=== PATIENT | male | born 1960 | race Caucasian/White ===

== ENCOUNTER 2018-02-24 19:09 | Emergency (ER) | payer MEDICAID, MEDICARE, OTHER ==
[~2018-02-24 19:09] MED LIST: TAMS0.4C67 PO
[2018-02-24 19:15] VITALS: BP 121/67; PULSE 95; RESP 18; TEMP 97.9; O2SAT 99
[2018-02-24 19:25] VITALS: BP 121/62; PULSE 83; RESP 16; O2SAT 100
[2018-02-24] MEDS ORDERED: WELL200T PO (19:26)
[2018-02-24] MEDS ORDERED: GABA400C5 PO (19:26)
[2018-02-24] MEDS ORDERED: ONDANSETRON ODT 4 MG TAB PO ONE ×2 (19:45→23:15)
[2018-02-24] MEDS ORDERED: SODIUM CHLORIDE 0.9% FLUSH 10 ML FLUSH IV FLUSH PRN (19:45)
[2018-02-24] MEDS ORDERED: SODIUM CHLOR 0.9% 1000 ML INJ 1,000 ML IV ONE (19:45)
--- NOTE | 2018-02-24 20:01 | PD ---
HPI Chief Complaint: Neuro Symptoms/ Deficits Time Seen by Provider: 19:59 Travel History International Travel<30 days: No Contact w/Intl Traveler<30days: No Traveled to known affect area: No History of Present Illness HPI Patient comes to the emergency department complaining of not feeling well today after stepped on a piece of glass yesterday while he was barefoot. Patient reports he saw his pain medicine physician today who wrapped the wound. Patient reports his tetanus shot is not up-to-date. Patient states that about an hour prior to the emergency department he got feeling worse having a headache, nausea, vomiting, and diarrhea. Patient does not know if there is any blood in the stool or vomit. Patient complaining of pressure-like pain in his frontal lobe without radiation. Patient denies anything making it better or worse. Patient's girlfriend at bedside reports patient seemed to be talking slow but otherwise not slurring his words. PFSH Past Medical History Cancer: No Cardiovascular Problems: No Diminished Hearing: No Endocrine: No Genitourinary: Yes (ELEVATED PSA) Hepatitis: No Hiatal Hernia: No Immune Disorder: No Musculoskeletal: Yes (HERNIATED LUMBAR DISC, TOTAL LEFT KNEE REPLACEMENT, NECK & ANKLE FUSION) Neurologic: No Psychiatric: No Respiratory: No Past Surgical History Abdominal Surgery: No AICD: No Body Medical Devices: MESH FROM HERNIA REPAIR Cardiac Surgery: No Ear Surgery: No Endocrine Surgery: No Eye Surgery: No Genitourinary Surgery: No Joint Replacement: Yes (LEFT TKR) Oral Surgery: Yes (TONSILLECTOMY) Pacemaker: No Thoracic Surgery: No Other Surgery: Yes Social History Alcohol Use: Yes Tobacco Use: Yes (1.5 PPD X 7 YEARS) Substance Use: Yes (CRACK. SOBER FOR 2008 YEARS) Allergies-Medications (Allergen,Severity, Reaction): Coded Allergies: morphine (Unverified Allergy, Severe, Anaphylaxis, 04/26/17) Reported Meds & Prescriptions Reported Meds & Active Scripts Active Zofran Odt (Ondansetron Odt) 4 Mg Tab 4 Mg SL Q6HR PRN Reported Gabapentin 400 Mg Cap 400 Cap PO TID Wellbutrin SR 12 HR (Bupropion HCl) 200 Mg Tab 200 Mg PO Q12HR Review of Systems Except as stated in HPI: all other systems reviewed are Neg Physical Exam Narrative GENERAL: Well-developed, well nourished, in no acute distress, and non-ill appearing. SKIN: Focused skin assessment warm and dry. Small puncture wound noted on the dorsal aspect of right foot. No foreign body, crepitus, erythematous, or drainage. HEAD: Atraumatic. Normocephalic. EYES: Pupils equal and round. EOMI. No scleral icterus. No injection or drainage. ENT: No nasal bleeding or discharge. Mucous membranes pink and moist. NECK: Trachea midline. No JVD. Supple. No nuclear rigidity. CARDIOVASCULAR: Regular rate and rhythm. No murmur appreciated. RESPIRATORY: No accessory muscle use. No respiratory distress. Clear to auscultation. Breath sounds equal bilaterally. GASTROINTESTINAL: Abdomen soft, non-tender, nondistended, and no guarding. Hepatic and splenic margins not palpable. Normal bowel sounds x4. No pulsatile mass. MUSCULOSKELETAL: No obvious deformities. No clubbing. No cyanosis. No edema. Full range of motion. NEUROLOGICAL: Awake and alert. No obvious cranial nerve deficits. Motor grossly within normal limits. Normal speech. PSYCHIATRIC: Appropriate mood and affect; insight and judgment normal. Data Data Last Documented VS Vital Signs Date Time Temp Pulse Resp B/P (MAP) Pulse Ox O2 Delivery O2 Flow Rate FiO2 02/24/18 23:00 02/24/18 20:54 90 16 96 Room Air 02/24/18 19:15 97.9 Orders Orders Complete Blood Count With Diff (02/24/18 19:41) Comprehensive Metabolic Panel (02/24/18 19:41) Lipase (02/24/18 19:41) Prothrombin Time / Inr (Pt) (02/24/18 19:41) Act Partial Throm Time (Ptt) (02/24/18 19:41) Urinalysis - C+S If Indicated (02/24/18 19:41) Ct Abd/Pel W Iv Contrast(Rout) (02/24/18 19:41) Iv Access Insert/Monitor (02/24/18 19:41) Ecg Monitoring (02/24/18 19:41) Oximetry (02/24/18 19:41) Sodium Chloride 0.9% Flush (Ns Flush) (02/24/18 19:45) Electrocardiogram (02/24/18 19:41) Chest, Single Ap (02/24/18 19:41) Ct Brain W/O Iv Contrast(Rout) (02/24/18 ) Sodium Chlor 0.9% 1000 Ml Inj (Ns 1000 M (02/24/18 19:45) Ondansetron Odt (Zofran Odt) (02/24/18 19:45) Influenzae A/B Antigen (02/24/18 19:41) Iohexol 350 Inj (Omnipaque 350 Inj) (02/24/18 21:35) Ed Discharge Order (02/24/18 22:56) Ondansetron Odt (Zofran Odt) (02/24/18 23:15) Labs Laboratory Tests Test 02/24/18 19:40 02/24/18 22:15 White Blood Count 14.7 TH/MM3 Red Blood Count 4.75 MIL/MM3 Hemoglobin 15.4 GM/DL Hematocrit 45.6 % Mean Corpuscular Volume 96.1 FL Mean Corpuscular Hemoglobin 32.4 PG Mean Corpuscular Hemoglobin Concent 33.8 % Red Cell Distribution Width 13.6 % Platelet Count 118 TH/MM3 Mean Platelet Volume 9.6 FL Neutrophils (%) (Auto) 86.5 % Lymphocytes (%) (Auto) 3.9 % Monocytes (%) (Auto) 7.9 % Eosinophils (%) (Auto) 1.5 % Basophils (%) (Auto) 0.2 % Neutrophils # (Auto) 12.7 TH/MM3 Lymphocytes # (Auto) 0.6 TH/MM3 Monocytes # (Auto) 1.2 TH/MM3 Eosinophils # (Auto) 0.2 TH/MM3 Basophils # (Auto) 0.0 TH/MM3 CBC Comment DIFF FINAL Differential Comment Prothrombin Time 10.0 SEC Prothromb Time International Ratio 1.0 RATIO Activated Partial Thromboplast Time 21.3 SEC Blood Urea Nitrogen 12 MG/DL Creatinine 0.96 MG/DL Random Glucose 115 MG/DL Total Protein 7.1 GM/DL Albumin 3.9 GM/DL Calcium Level 8.4 MG/DL Alkaline Phosphatase 70 U/L Aspartate Amino Transf (AST/SGOT) 15 U/L Alanine Aminotransferase (ALT/SGPT) 21 U/L Total Bilirubin 0.6 MG/DL Sodium Level 142 MEQ/L Potassium Level 3.8 MEQ/L Chloride Level 108 MEQ/L Carbon Dioxide Level 25.2 MEQ/L Anion Gap 9 MEQ/L Estimat Glomerular Filtration Rate 81 ML/MIN Lipase 134 U/L Urine Color YELLOW Urine Turbidity CLEAR Urine pH 5.0 Urine Specific [place] 1.042 Urine Protein NEG mg/dL Urine Glucose (UA) NEG mg/dL Urine Ketones NEG mg/dL Urine Occult Blood NEG Urine Nitrite NEG Urine Bilirubin NEG Urine Urobilinogen LESS THAN 2 mg/dL Urine Leukocyte Esterase NEG Urine RBC 2 /hpf Urine WBC LESS THAN 1 /hpf Urine Mucus FEW /lpf Microscopic Urinalysis Comment CULT NOT INDICATED MDM Medical Decision Making Medical Screen Exam Complete: Yes Emergency Medical Condition: Yes Interpretation(s) EKG reviewed by Dr. Winn shows sinus rhythm ventricular rate of 85. No STEMI. Last Impressions Chest X-Ray 02/24/181940 Signed Impressions: CONCLUSION: No active disease. Abdomen/Pelvis CT 02/24/181940 Signed Impressions: CONCLUSION: 1. No acute findings. Specifically no obstruction, free fluid or free air. Head CT 02/24/18 0000 Signed Impressions: CONCLUSION: 1. No acute intracranial abnormalities. Differential Diagnosis Influenza, gastritis, colitis, sinusitis, SBO, enteritis, viral syndrome Narrative Course The patient presented with vomiting and diarrhea.. The patient appeared comfortable, hydrated and the abdominal exam was unremarkable and minimal to nontender to me, and without defined focal tenderness. Laboratory and radiographic evaluation revealed no significant abnormality. There was no evidence of an acute, surgical abdomen at this time. There was no clinical or radiological evidence to support bowel obstruction, cholecystitis/cholelithiasis , pancreatitis, perforation of gastric ulcer, colitis, diverticulitis, bacterial peritonitis, obstruction, volvulus, early appendicitis, or hernial incarceration or strangulation at this time. There was no evidence to support vascular pathology such as AAA, mesenteric ischemia, nor significant GIB. There was also no clinical evidence by history, exam or risk factors to suggest atypical presentation of cardiac disease such as ACS, AMI or atypical angina. No evidence to suggest genitourinary etiology as well. During the course of the ED visit the patient was given IVF, the patient noted improvement. The patient was able to tolerate fluids at discharge. Clinical picture was discussed with the patient, as well as plan of care. The patient was instructed to follow up with their physician. Abdominal pain warnings were discussed with the patient. The patient is to return if worsens, pain worsens or changes, develop fever, inability to tolerate fluids with or without vomiting, unable to establish follow up or as needed. The patient agrees with plan. Patient in no obvious distress upon re-evaluation. All pertinent laboratory/ Radiology result(s) discussed with patient. Discussed patient with Dr. Winn prior to discharge, who is in agreement with plan of care disposition. Any questions/concerns in reference to patient diagnosis/condition discussed and clarified prior to patient's discharge. Reinforced sheer importance of close follow up with patient's primary physician or primary care clinic. Instructed patient to return to ED immediately, if symptoms return/worsen. Patient showed understanding of above instructions. Further instructions and recommendations were detailed in discharge paperwork. Patient ambulated without difficulty out of ED at discharge. Diagnosis Primary Impression: Nausea, vomiting, and diarrhea Patient Instructions: Acute Diarrhea (ED), Acute Nausea and Vomiting (ED), General Instructions Additional Instructions: Follow-up with your primary care physician in 2-3 days for evaluation. Take all medication as prescribed. Drink plenty of non-caffeinated and nonalcoholic fluids. Continue wound care as instructed by your pain medicine physician. Return to the emergency department if symptoms get worse. Med/Other Pt SpecificInfo: Prescription(s) given Scripts Ondansetron Odt (Zofran Odt) 4 Mg Tab 4 MG SL Q6HR Y for Nausea/Vomiting, #12 TAB 0 Refills Prov: Jermain Winn MD 02/24/18 Disposition: 01 DISCHARGE HOME Condition: Stable Migue Weldon Feb 24, 2018 20:01
--- NOTE | 2018-02-24 20:10 | PD ---
Data Data Last Documented VS Vital Signs Date Time Temp Pulse Resp B/P (MAP) Pulse Ox O2 Delivery O2 Flow Rate FiO2 02/24/18 23:00 02/24/18 20:54 90 16 96 Room Air 02/24/18 19:15 97.9 Orders Orders Complete Blood Count With Diff (02/24/18 19:41) Comprehensive Metabolic Panel (02/24/18 19:41) Lipase (02/24/18 19:41) Prothrombin Time / Inr (Pt) (02/24/18 19:41) Act Partial Throm Time (Ptt) (02/24/18 19:41) Urinalysis - C+S If Indicated (02/24/18 19:41) Ct Abd/Pel W Iv Contrast(Rout) (02/24/18 19:41) Iv Access Insert/Monitor (02/24/18 19:41) Ecg Monitoring (02/24/18 19:41) Oximetry (02/24/18 19:41) Sodium Chloride 0.9% Flush (Ns Flush) (02/24/18 19:45) Electrocardiogram (02/24/18 19:41) Chest, Single Ap (02/24/18 19:41) Ct Brain W/O Iv Contrast(Rout) (02/24/18 ) Sodium Chlor 0.9% 1000 Ml Inj (Ns 1000 M (02/24/18 19:45) Ondansetron Odt (Zofran Odt) (02/24/18 19:45) Influenzae A/B Antigen (02/24/18 19:41) Iohexol 350 Inj (Omnipaque 350 Inj) (02/24/18 21:35) Ed Discharge Order (02/24/18 22:56) Ondansetron Odt (Zofran Odt) (02/24/18 23:15) Labs Laboratory Tests Test 02/24/18 19:40 02/24/18 22:15 White Blood Count 14.7 TH/MM3 Red Blood Count 4.75 MIL/MM3 Hemoglobin 15.4 GM/DL Hematocrit 45.6 % Mean Corpuscular Volume 96.1 FL Mean Corpuscular Hemoglobin 32.4 PG Mean Corpuscular Hemoglobin Concent 33.8 % Red Cell Distribution Width 13.6 % Platelet Count 118 TH/MM3 Mean Platelet Volume 9.6 FL Neutrophils (%) (Auto) 86.5 % Lymphocytes (%) (Auto) 3.9 % Monocytes (%) (Auto) 7.9 % Eosinophils (%) (Auto) 1.5 % Basophils (%) (Auto) 0.2 % Neutrophils # (Auto) 12.7 TH/MM3 Lymphocytes # (Auto) 0.6 TH/MM3 Monocytes # (Auto) 1.2 TH/MM3 Eosinophils # (Auto) 0.2 TH/MM3 Basophils # (Auto) 0.0 TH/MM3 CBC Comment DIFF FINAL Differential Comment Prothrombin Time 10.0 SEC Prothromb Time International Ratio 1.0 RATIO Activated Partial Thromboplast Time 21.3 SEC Blood Urea Nitrogen 12 MG/DL Creatinine 0.96 MG/DL Random Glucose 115 MG/DL Total Protein 7.1 GM/DL Albumin 3.9 GM/DL Calcium Level 8.4 MG/DL Alkaline Phosphatase 70 U/L Aspartate Amino Transf (AST/SGOT) 15 U/L Alanine Aminotransferase (ALT/SGPT) 21 U/L Total Bilirubin 0.6 MG/DL Sodium Level 142 MEQ/L Potassium Level 3.8 MEQ/L Chloride Level 108 MEQ/L Carbon Dioxide Level 25.2 MEQ/L Anion Gap 9 MEQ/L Estimat Glomerular Filtration Rate 81 ML/MIN Lipase 134 U/L Urine Color YELLOW Urine Turbidity CLEAR Urine pH 5.0 Urine Specific [place] 1.042 Urine Protein NEG mg/dL Urine Glucose (UA) NEG mg/dL Urine Ketones NEG mg/dL Urine Occult Blood NEG Urine Nitrite NEG Urine Bilirubin NEG Urine Urobilinogen LESS THAN 2 mg/dL Urine Leukocyte Esterase NEG Urine RBC 2 /hpf Urine WBC LESS THAN 1 /hpf Urine Mucus FEW /lpf Microscopic Urinalysis Comment CULT NOT INDICATED MDM Supervised Visit with GINA: Yes Narrative Course I, Dr. Winn, have reviewed the advance practice practitioner's documentation and am in agreement, met with the patient face to face, made the diagnosis, and the medical decision making was done by me. *My assessment and Findings: Patient seen and examined by me in addition to Curt Weldon, patient stepped on a piece of glass a few days ago and started having some left lower abdominal pain associated with some nausea nausea and nonbilious nonbloody emesis. He states he has had a hernia repair in his abdomen before. Start for me to link the foot injury to his abdominal pain is general just not feeling well but a CAT scan has been ordered and will follow the CAT scan. Certainly the differential diagnosis would include obstruction and diverticulitis with the patient has not had a history of in the past who would also include less concerning differentials including gastritis gastroenteritis and diverticulitis. Last 24 hours Impressions Chest X-Ray 02/24/181940 Signed Impressions: CONCLUSION: No active disease. Abdomen/Pelvis CT 02/24/181940 Signed Impressions: CONCLUSION: 1. No acute findings. Specifically no obstruction, free fluid or free air. Head CT 02/24/18 0000 Signed Impressions: CONCLUSION: 1. No acute intracranial abnormalities. Scripts Ondansetron Odt (Zofran Odt) 4 Mg Tab 4 MG SL Q6HR Y for Nausea/Vomiting, #12 TAB 0 Refills Prov: Jermain Winn MD 02/24/18 Jermain Winn MD Feb 24, 2018 20:10
[2018-02-24 20:21] LABS: AUTOMATED NEUTROPHIL # 12.7 TH/MM3 (1.8-7.7); BASOPHIL % 0.2 % (0.0-2.0); EOSINOPHIL # 0.2 TH/MM3 (0-0.4); EOSINOPHIL % 1.5 % (0.0-4.0); HEMATOCRIT 45.6 % (39.0-51.0); HEMOGLOBIN 15.4 GM/DL (13.0-17.0); LYMPH % 3.9 % (9.0-44.0); LYMPHOCYTE # 0.6 TH/MM3 (1.0-4.8); MEAN CELL VOLUME 96.1 FL (80.0-100.0); MEAN CORPUSCULAR HEMOGLOBIN 32.4 PG (27.0-34.0); MEAN CORPUSCULAR HGB CONC 33.8 % (32.0-36.0); MEAN PLATELET VOLUME 9.6 FL (7.0-11.0); MONO % 7.9 % (0.0-8.0); MONOCYTE # 1.2 TH/MM3 (0-0.9); NEUT % 86.5 % (16.0-70.0); PLATELET COUNT 118 TH/MM3 (150-450); RED BLOOD COUNT 4.75 MIL/MM3 (4.50-5.90); RED CELL DISTRIBUTION WIDTH 13.6 % (11.6-17.2); WHITE BLOOD COUNT 14.7 TH/MM3 (4.0-11.0)
--- NOTE | 2018-02-24 20:31 | RADRPT ---
EXAM DATE: 02/24/2018 8:19 PM EDT AGE/SEX: 57 years / Male INDICATIONS: Shortness of breath. CLINICAL DATA: This is the patient's initial encounter. Patient reports that signs and symptoms have been present for 1 day and indicates a pain score of 0/10. MEDICAL/SURGICAL HISTORY: None. None. COMPARISON: No prior exams available for comparison. FINDINGS: A single AP view of the chest demonstrates the lungs to be symmetrically aerated without evidence of mass, infiltrate or effusion. The cardiomediastinal contours are unremarkable. Osseous structures a re intact. CONCLUSION: No active disease. Electronically signed by: Silvino Bhatia MD 02/24/2018 8:30 PM EDT
[2018-02-24 20:43] LABS: ALBUMIN 3.9 GM/DL (3.4-5.0); ALT (GPT) 21 U/L (12-78); AST (GOT) 15 U/L (15-37); BICARBONATE 25.2 MEQ/L (21.0-32.0); BLOOD UREA NITROGEN 12 MG/DL (7-18); CALCIUM 8.4 MG/DL (8.5-10.1); CHLORIDE 108 MEQ/L (98-107); CREATININE 0.96 MG/DL (0.60-1.30); GLOMERULAR FILTRATION RATE 81 ML/MIN (>89); GLUCOSE,RANDOM 115 MG/DL (74-106); SODIUM (NA) 142 MEQ/L (136-145)
[2018-02-24 20:45] LABS: ALKALINE PHOSPHATASE 70 U/L (45-117); TOTAL BILIRUBIN ADULT 0.6 MG/DL (0.2-1.0); TOTAL PROTEIN 7.1 GM/DL (6.4-8.2)
[2018-02-24 20:54] VITALS: BP 119/67; PULSE 90; RESP 16; O2SAT 96
[2018-02-24] MEDS ORDERED: IOHEXOL 350 MG/ML 10 ML VIAL (for RAD DIAG) IVCONTRAST ONE (21:35)
--- NOTE | 2018-02-24 21:40 | RADRPT ---
EXAM DATE: 02/24/2018 9:35 PM EDT AGE/SEX: 57 years / Male INDICATIONS: Headache and slurred speech. CLINICAL DATA: This is the patient's initial encounter. Patient reports that signs and symptoms have been present for 1 day and indicates a pain score of 6/10. MEDICAL/SURGICAL HISTORY: None. None. RADIATION DOSE: 64.63 CTDI (mGy) ;Tabletop exam [place] [facility] [place]/11/2015. . TECHNIQUE: CT of the head without contrast. Using automated exposure control and adjustment of the mA and/or kV according to patient size, radiation dose was kept as low as reasonably achievable to ob tain optimal diagnostic quality images. FINDINGS: Cerebrum: The ventricles are normal for age. No evidence of midline shift, mass lesion, hemorrhage or acute infarction. No extraaxial fluid collections are seen. Posterior Fossa: The cerebellum and brainstem are intact. The 4th ventricle is midline. The cerebe llopontine angle is unremarkable. Extracranial: The visualized portion of the orbits is intact. Skull: The calvaria is intact. No evidence of skull fracture. CONCLUSION: 1. No acute intracranial abnormalities. Electronically signed by: Silvino Bhatia MD 02/24/2018 9:39 PM EDT
--- NOTE | 2018-02-24 22:09 | RADRPT ---
EXAM DATE: 02/24/2018 9:37 PM EDT AGE/SEX: 57 years / Male INDICATIONS: Patient complains of nausea and vomiting with diaphoresis. CLINICAL DATA: This is the patient's initial encounter. Patient reports that signs and symptoms have been present for 1 day and indicates a pain score of 6/10. MEDICAL/SURGICAL HISTORY: None. None. ORAL CONTRAST: No oral contrast ingested. RADIATION DOSE: 10.89 CTDI (mGy) COMPARISON: No prior exams available for comparison. TECHNIQUE: Multiple contiguous axial images were obtained through the abdomen and pelvis following b olus infusion of 96 ml Omnipaque 350 (iohexol) nonionic water-soluble contrast as a single exam dos e. No oral contrast ingested. Using automated exposure control and adjustment of the mA and/or kV ac cording to patient size, the radiation dose was kept as low as reasonably achievable to obtain optima l diagnostic quality images. FINDINGS: Lung bases are clear. No acute findings in the liver, spleen, adrenals, kidneys or pancreas. No calci fied gallstones or biliary ductal dilatation. No free fluid. No bowel obstruction. No adenopathy. Radiation seed implants in the prostate bed. Mode rate degenerative change in lumbar spine. No bowel obstruction. No free air or free fluid. No adenopathy. No acute bony abnormalities. CONCLUSION: 1. No acute findings. Specifically no obstruction, free fluid or free air. Electronically signed by: Silvino Bhatia MD 02/24/2018 10:07 PM EDT
[2018-02-24] MEDS ORDERED: ZOFR4TAB3 SL (22:44)
[2018-02-24 23:04] LABS: BILIRUBIN, URINE NEG (NEG); BLOOD, URINE NEG (NEG); GLUCOSE,URINE NEG (NEG); KETONE, URINE NEG (NEG); MUCUS URINE FEW /lpf (OCC); NITRITE,URINE NEG (NEG); URINE COLOR YELLOW (YELLW/STRAW); URINE LEUKOCYTE ESTERASE NEG (NEG)
--- NOTE | 2018-02-25 12:49 | EKG ---
Date Performed: 02/24/2018 Time Performed: 18:27:09 PTAGE: 57 years EKG: Sinus rhythm INCOMPLETE RIGHT BUNDLE BRANCH BLOCK BORDERLINE ECG PREVIOUS TRACING : 06/10/2015 08.38 Since the previous tracing, no significant change noted DOCTOR: Wicho Perdomo Interpretating Date/Time 02/25/2018 12:49:02
== END 2018-02-24 23:10 | disposition home or self-care (01) ==
LOC: NEPE 19:09
DX: R11.2 Nausea with vomiting, unspecified (principal); R19.7 Diarrhea, unspecified; R06.02 Shortness of breath; R51 Headache; R10.32 Left lower quadrant pain; I45.10 Unspecified right bundle-branch block; F17.200 Nicotine dependence, unspecified, uncomplicated
CPT/HCPCS: 70450; 71045; 74177; 80053; 81001; 83690; 85025; 85610; 85730; 87804; 93005; 96360; 99285; J7030; Q9967